=== PATIENT | male | born 1975 | race Caucasian/White ===

== ENCOUNTER 2019-10-27 17:00 | Inpatient (IN) | payer OTHER | END 2019-11-01 18:30 | disposition home or self-care (01) | DRG 872 | LOC: ER 17:00 → EROBS 18:34 → 4W 22:06 | PROVIDERS: ADMIT Internal Medicine | DX: A41.9 Sepsis, unspecified organism (principal); Z68.44 Body mass index [BMI] 60.0-69.9, adult; L03.116 Cellulitis of left lower limb; E66.01 Morbid (severe) obesity due to excess calories; E87.6 Hypokalemia; F17.210 Nicotine dependence, cigarettes, uncomplicated; G89.29 Other chronic pain; I10 Essential (primary) hypertension; Z79.899 Other long term (current) drug therapy; Z72.89 Other problems related to lifestyle ==

== ENCOUNTER → 2019-11-04 | Outpatient (CLI) | payer OTHER ==
[~2019-11-04] MED LIST: ATENOLOL 50MG T50 MG PO; AUGMENTIN 875-1 EACH PO; AUGMENTIN 875875 MG PO; FLAGYL500 MG PO; GLUCOSAMINE-CH1 EA15 PO; HYDROCODON-ACE1 EAC7 PO; HYDROCODONE-AP1 EAC6 PO; K-DUR 20 MEQ T20 MEQ PO; LASIX 40 MG TAB40 M1 PO; SULINDAC 150 M150 MG PO; TYLENOL325 MG PO; UNICOMPLEX M TA1 TA1 PO
== END ==
LOC: HYPER 11:51
PROVIDERS: ATTEND Emergency Medicine
DX: L03.116 Cellulitis of left lower limb (principal); R60.0 Localized edema; E66.01 Morbid (severe) obesity due to excess calories; F17.200 Nicotine dependence, unspecified, uncomplicated; Z68.43 Body mass index [BMI] 50.0-59.9, adult; Z90.49 Acquired absence of other specified parts of digestive tract

== ENCOUNTER → 2019-11-11 | Outpatient (CLI) | payer OTHER | LOC: HYPER 14:25 | PROVIDERS: ATTEND Emergency Medicine | DX: L03.116 Cellulitis of left lower limb (principal); R60.0 Localized edema; E66.01 Morbid (severe) obesity due to excess calories; F17.290 Nicotine dependence, other tobacco product, uncomplicated; Z68.43 Body mass index [BMI] 50.0-59.9, adult ==

== ENCOUNTER 2020-08-27 17:59 | Inpatient (IN) | payer OTHER ==
[~2020-08-27] VITALS: Ht 193 cm; Wt 181.4 kg
[2020-08-27 18:21] VITALS: BP 166/85
[2020-08-27 18:38] LABS: BASOPHILS 0.4 % (0.0-2.0); EOSINOPHILS 0.7 % (0.0-3.0); HEMATOCRIT 42.1 % (42.0-52.0); HEMOGLOBIN 13.7 gm/dL (14.0-18.0); LYMPHOCYTES 9.7 % (24.0-44.0); MCH 28.5 pg (26.0-34.0); MCHC 32.6 g/dL (28.0-37.0); MCV 87.5 fL (80.0-100.0); MONOCYTES 8.4 % (1.0-8.0); PLATELET COUNT 205 thou/uL (150-400); POLYS 80.8 % (36.0-66.0); RBC 4.81 mil/uL (4.50-6.00); RDW 14.8 % (10.5-14.5); WBC 14.9 thou/uL (4.0-11.0)
[2020-08-27 19:07] LABS: CALCIUM 8.7 mg/dL (8.5-10.1); POTASSIUM 4.1 mmol/L (3.5-5.1); TOTAL BILIRUBIN 0.4 mg/dL (0.2-1.0); TOTAL PROTEIN 6.9 g/dL (6.4-8.2)
--- NOTE | 2020-08-27 19:18 | NUR ---
HAVE REQUESTED CEZOLIN FROM PHARMACY. STILL AWAITING MEDICATION
[2020-08-27 19:54] VITALS: BP 139/74
[2020-08-27 20:20] VITALS: BP 136/72
[2020-08-27 21:11] VITALS: BP 116/64
[2020-08-27 23:54] VITALS: BP 138/64
--- NOTE | 2020-08-28 04:17 | NUR ---
RECEIVED CARE OF THIS PATIENT AT 2022 FROM ED VIA CART ACCOMPAINIED BY ED PERSONEL. PATIENT ALERT AND ORIENTED X4. UP IN ROOM BY SELF. DENIES PAIN. EDEMA KANE LOWER EXT. R LOWER EXT MORE SO, IT IS RED, WARM AND TENDER TO TOUCH. IV PATENT IN RAC WITH FLUIDS INFUSING. SLEPT LITTLE THIS SHIFT.
[2020-08-28 04:44] VITALS: BP 133/89
[2020-08-28 05:30] LABS: ABSOLUTE NEUTROPHILS 7.8 thou/uL (1.4-8.2); BASOPHILS 0.5 % (0.0-2.0); EOSINOPHILS 2.6 % (0.0-3.0); HEMATOCRIT 40.2 % (42.0-52.0); HEMOGLOBIN 13.1 gm/dL (14.0-18.0); LYMPHOCYTES 15.6 % (24.0-44.0); MCH 28.6 pg (26.0-34.0); MCHC 32.6 g/dL (28.0-37.0); MCV 87.7 fL (80.0-100.0); MONOCYTES 11.6 % (1.0-8.0); PLATELET COUNT 197 thou/uL (150-400); POLYS 69.7 % (36.0-66.0); RBC 4.58 mil/uL (4.50-6.00); RDW 14.7 % (10.5-14.5); WBC 11.1 thou/uL (4.0-11.0)
[2020-08-28 05:38] LABS: CALCIUM 8.3 mg/dL (8.5-10.1); CREATININE 0.8 mg/dL (0.7-1.3); POTASSIUM 3.9 mmol/L (3.5-5.1)
[2020-08-28 08:24] VITALS: BP 136/79
--- NOTE | 2020-08-28 08:50 | NUR ---
ASSUMED PT CARE THIS AM. PT VSS, A&OX4. PATIENT PLEASANT AND COOPERATIVE WITH STAFF. BILATERAL LOWER EXTREMETIES ARE EDEMATOUS, AND RIGHT LOWER EXTREMITY IS RED IN COLOR. PATIENT REMAINS CONTINENT AND IS ABLE TO AMBULATE AROUND ROOM. ON ROOM AIR. PATIENT DENIES ANY PAIN. IV PATENT, FLUIDS INFUSING. HYDRATION ENCOURAGED. PATIENT INSTRUCTED TO CALL WHEN NEEDED.
--- NOTE | 2020-08-28 09:24 | NUR ---
INITIAL ASSESSMENT: PT LIVES HOME W/SPOUSE. PT IS ACTIVE AND INDEPENDENT W/CARES. PT HAS 0 DMES. PT DENIES HX WITH SNF OR HH. PT HAS 15 STAIRS TO ENTER HOME. THERE ARE NO ANTICIPATED CM NEEDS.
--- NOTE | 2020-08-28 15:36 | NUR ---
PT TRANSFER FROM 4S APPROX 1430, PT A&OX4, VSS, DENIES PAIN. RIGHT LEG RED AND OUTLINED TO WATCH SPREAD BY ER. FAMILY AT BEDSIDE. PATIENT ROOM AIR, NO SIGNS OF DISTRESS. WILL CONTINUE TO MONITOR.
[2020-08-28 16:08] VITALS: BP 145/84
[2020-08-28 19:43] VITALS: BP 148/79
[2020-08-28 23:06] LABS: GLYCOHEMOGLOBIN (HGB A1C) 5.8 % (4.8-5.6)
--- NOTE | 2020-08-29 04:24 | NUR ---
Assumed pt care at 1900. A/OX4,VSS.Up ad jennifer in room w/o any problems voiced. Edema on BLE R>L,RLE red and warm to touch. Encouraged to keep extremity elevated. Denies pain on assessment. Encouraged to call for help as needed. Resting quietly w/o any distress noted,will continue to monitor pt.
[2020-08-29 07:43] VITALS: BP 128/75
--- NOTE | 2020-08-29 10:42 | HC ---
[facility] [place] [address] CONSULTATION Name: ABISAI LINDO Room #: 452-P ADM IN M.R.#: [id number] Admission: 08/27/20 Attend Phys: Sabino Garcia MD Discharge: Date of : 73 Report #: [id number] THIS REPORT FOR: cc: Abisai Godoy MD,Abisai Magdaleno,Boston Myers MD ~ DATE OF SERVICE: 08/28/2020 CHIEF COMPLAINT: Cellulitis, right lower extremity. HISTORY OF PRESENT ILLNESS: This is a 45-year-old male patient who was admitted after developing fever and chills yesterday and noticing some redness developing on his right lower leg. He has had cellulitis in the past. He states he did not have any of these symptoms on Friday and they have developed quite rapidly. He states he slept reasonably okay last night. Still has some pain in his leg, but is doing overall fairly well. PAST MEDICAL HISTORY: Positive for history of chronic knee pain, has had previous surgery. He has had a history of hypertension and history of recurrent cellulitis of lower extremities. SOCIAL HISTORY: The patient is a current daily smoker. Occasional alcohol use, no recreational drug use. FAMILY HISTORY: Noncontributory. MEDICATIONS: Include furosemide, amoxicillin, glucosamine, atenolol, Augmentin. ALLERGIES: No known drug allergies. FAMILY HISTORY: Noncontributory. REVIEW OF SYSTEMS: CONSTITUTIONAL: The patient does complain of fever and chills. Denies any recent weight loss. NEUROLOGICAL: The patient denies focal weakness, numbness or tingling. EYES: The patient denies visual changes, redness, or drainage. ENT: The patient denies earache, nasal drainage, sore throat. CARDIOVASCULAR: The patient denies chest pain, palpitations or diaphoresis. PULMONARY: The patient denies cough or shortness of breath. GASTROINTESTINAL: The patient denies nausea, vomiting, diarrhea or abdominal pain. ORTHOPEDIC: The patient complains of pain, swelling, redness of the right lower extremity. [address] [address] CONSULTATION Name: ABISAI LINDO Room #: 452-P [facility] IN M.R.#: [id number] Admission: 08/27/20 Attend Phys: Sabino Garcia MD Discharge: Date of : 73 Report #: [id number] Other systems in a 14-point review of systems are negative. PHYSICAL EXAMINATION: VITAL SIGNS: At this time include temperature 36.8, pulse 79, respiratory rate 18, blood pressure 136/79. GENERAL: This is a well-developed male patient who appears to be in minimal distress. HEENT: Head normocephalic. Nose and throat clear. NECK: Supple. ABDOMEN: Soft. Bowel sounds present. EXTREMITIES: Lower extremities demonstrate easily palpable distal pulses. He has 1+ edema bilaterally. He has significant erythema involving the right lower leg above the ankle and below the knee, nearly circumferentially. It is warm and erythematous and slightly tender to palpation. No fluctuance is noted and no punctures or abrasions or other breaks in the skin are seen. LABORATORY STUDIES: Include white blood cell count 14.9, now down to 11.1, hemoglobin 13.1, hematocrit 40.2. Sodium 136, potassium 3.9, chloride 103, CO2 of 24, BUN 10, creatinine 0.8, glucose 115, it was 130 on admission. Albumin is 3.0. CLINICAL IMPRESSION: 1. Cellulitis of the right lower extremity. 2. Hypertension. 3. Moderate obesity. 4. Mild elevation in blood glucose. RECOMMENDATIONS: At this point, no specific dressings will be required, nothing topical at this time either. I suspect Staphylococcus and strep is likely causative organisms. Agree with current antibiotic regimen of vancomycin and he has been started on Augmentin p.o. We will recommend elevation of the foot of bed for control of edema. No compression at this time until cellulitis has improved somewhat. I appreciate being asked to see him in consultation. <ELECTRONICALLY SIGNED> By: Boston Magdaleno MD 08/29/20 1042 [id number] Boston Magdaleno MD /nt
--- NOTE | 2020-08-29 11:49 | NUR ---
PT ALERT AND ORIENTED TIMES FOUR. VSS. PT DENIES PAIN/SOA. PT TOLERATES MEDS AND MEALS. PT UP AB L[place] WITH STEADY GAIT. PT SLOWLY PROGRESSING TOWRADS POC GOALS.
--- NOTE | 2020-08-29 12:07 | NUR ---
PT CONTINUES ON IV VANC AND CEFAZOLIN. CM FOLLOWING REGARDING DC NEEDS.
--- NOTE | 2020-08-29 14:38 | NUR ---
ORDERS RECEIVED FOR EVAL AND TREAT. NURSING NOTES SAY Pt IS UP AD [place]. SPOKE WITH Pt WHO STATES HE IS HAVING NO DIFFICULTY WITH MOBILITY AND GETS UP TO THE BATHROOM BY HIMSELF. Pt DECLINING A FORMAL P.T. EVAL BUT APPEARS SAFE FOR HOME WHEN MEDICALLY CLEAR
[2020-08-29 16:06] VITALS: BP 122/72
[2020-08-29 21:25] VITALS: BP 142/75
--- NOTE | 2020-08-30 04:38 | NUR ---
Assumed pt care at 1900. A/OX4,VSS. Denies pain on assessment,redness/edema persists on RLE.Pt encouraged to keep elevate extremities to help with the swelling,verbalizes understanding. Pt had a shower at HS,w/o any problems;antifungal cream applied between toes as ordered. Up ad jennifer. Resting quietly w/o any distress noted, will continue to monitor pt.
[2020-08-30 08:00] VITALS: BP 118/89
[2020-08-30 10:00] LABS: HEMATOCRIT 42.5 % (42.0-52.0); HEMOGLOBIN 14.1 gm/dL (14.0-18.0); MCH 28.6 pg (26.0-34.0); MCHC 33.1 g/dL (28.0-37.0); MCV 86.4 fL (80.0-100.0); RBC 4.92 mil/uL (4.50-6.00); RDW 14.4 % (10.5-14.5); WBC 8.9 thou/uL (4.0-11.0)
--- NOTE | 2020-08-30 11:41 | NUR ---
CARE TEAM INDICATED THAT PT IS MEDICALLY STABLE TO DISCHARGE HOME THIS DAY. PT WILL SWITCH TO ORAL ABX. PT TO FOLLOW UP WITH ID NEXT WEEK. PT IS UP AD [place] AND WILL DC HOME TO SELF CARE. NO OTHER CM INTERVENTION INDICATED. CASE CLOSED.
[2020-08-30] MEDS ORDERED: KEFLEX500 M1 PO (12:43)
[2020-08-30] MEDS ORDERED: LAMISIL AT 1% C12 G1 TOP (12:43)
[2020-08-30] MEDS ORDERED: ACETAMINOPHEN325 M1 PO (12:43)
[2020-08-30] MEDS ORDERED: LASIX 40 MG TAB40 M1 PO (12:43)
[2020-08-30 13:48] VITALS: BP 118/89
--- NOTE | 2020-08-30 15:32 | NUR ---
Assumed pt care at 7am.Pt in bed alert and oriented x4. Assessment completed. vss.Am meds given with breakfast and well tolerated.Dr Pelayo and Kelly here.dc order noted.Dc summary compile and reviewed with pt.Rx faxed to pt pharmacy. Saline lock dc'd.Pt called family for ride.At 1520.pt dc home per wc accompanied by cutting and creasing press operator.
== END 2020-08-30 15:20 | disposition home or self-care (01) | DRG 602 ==
LOC: ER 17:59 → 4S 19:36 → 4W 19:36 → EROBS 19:36 → 4S 20:20 → 4W 08-28 13:43
PROVIDERS: Internal Medicine; Nurse Practitioner; Nurse Practitioner Family; ADMIT Hospitalist; ATTEND Hospitalist
DX: L03.115 Cellulitis of right lower limb (principal); R65.11 Systemic inflammatory response syndrome (SIRS) of non-infectious origin with acute organ dysfunction; Z68.42 Body mass index [BMI] 45.0-49.9, adult; E44.0 Moderate protein-calorie malnutrition; I50.32 Chronic diastolic (congestive) heart failure; E66.01 Morbid (severe) obesity due to excess calories; I11.0 Hypertensive heart disease with heart failure; B35.3 Tinea pedis; I87.2 Venous insufficiency (chronic) (peripheral); A46 Erysipelas; G89.29 Other chronic pain; M25.562 Pain in left knee; M25.561 Pain in right knee; R73.09 Other abnormal glucose; F17.200 Nicotine dependence, unspecified, uncomplicated; F10.10 Alcohol abuse, uncomplicated; Y90.9 Presence of alcohol in blood, level not specified
CPT/HCPCS: 10047; 10102

== ENCOUNTER 2021-03-04 16:06 | Emergency (ER) | payer OTHER ==
[~2021-03-04] VITALS: Ht 193 cm; Wt 190.5 kg
[~2021-03-04 16:06] MED LIST changes: +ACETAMINOPHEN325 M1 PO; +KEFLEX500 M1 PO; +LAMISIL AT 1% C12 G1 TOP
[2021-03-04 17:43] LABS: HEMATOCRIT 40.5 % (42.0-52.0); HEMOGLOBIN 13.8 gm/dL (14.0-18.0); MCH 29.2 pg (26.0-34.0); MCV 85.9 fL (80.0-100.0); RBC 4.72 mil/uL (4.50-6.00); RDW 14.5 % (10.5-14.5); WBC 23.2 thou/uL (4.0-11.0)
[2021-03-04] MEDS ORDERED: VOLTAREN ARTHRI20 GM TOP (17:44)
[2021-03-04 17:45] LABS: CALCIUM 8.6 mg/dL (8.5-10.1); CREATININE 1.2 mg/dL (0.7-1.3); POTASSIUM 3.5 mmol/L (3.5-5.1)
[2021-03-04] MEDS ORDERED: IRBESARTAN-HCT1 EAC1 PO (17:45)
[2021-03-04 17:52] LABS: ALBUMIN 3.1 g/dL (3.4-5.0); TOTAL BILIRUBIN 0.6 mg/dL (0.2-1.0); TOTAL PROTEIN 6.7 g/dL (6.4-8.2)
[2021-03-04] MEDS ORDERED: CEPHALEXIN500 MG PO (18:19)
[2021-03-04] MEDS ORDERED: BACTRIM DS TAB1 EACH PO (18:19)
[2021-03-04 18:25] VITALS: BP 114/47
[2021-03-04 18:55] LABS: ABSOLUTE NEUTROPHILS 19.7 thou/uL (1.4-8.2)
[2021-03-04 18:57] LABS: PLATELET ESTIMATE NORMAL
[2021-03-04 18:58] LABS: PLATELET COUNT 207 thou/uL (150-400)
== END 2021-03-04 18:33 | disposition home or self-care (01) ==
LOC: ER 16:06
PROVIDERS: Emergency Medicine
DX: L03.116 Cellulitis of left lower limb (principal); F17.210 Nicotine dependence, cigarettes, uncomplicated; Z79.899 Other long term (current) drug therapy